=== PATIENT | female | born 1990 | race Two or more races ===

== ENCOUNTER 2019-01-15 10:32 | Emergency (ER) | payer SELFPAY ==
[2019-01-15 10:43] VITALS: BP 112/64
[2019-01-15] MEDS ORDERED: IBUPROFEN 600 MG TAB PO ONE (11:31)
[2019-01-15] MEDS ORDERED: ACETAMINOPHEN 500 MG TAB PO ONE (11:31)
--- NOTE | 2019-01-15 11:31 | EDPHY ---
H & P Time Seen by Provider: 01/15/19 11:13 HPI/ROS: 2 days prior to arrival this patient slipped on a stair that is covered with ice without of her home while wearing slippers and had forced hyperflexion of her left great toe with severe pain the time the injury subsequent ecchymosis swelling and pain without significant improvement from [id number] analgesics. She has been having some difficulty sleeping due to the pain. She denies any other injuries from the fall. She is accompanied by her boyfriend who brought her here by private vehicle for evaluation of her toe injury. ROS: Neuro: No head injury from the fall. No numbness to the toe Musculoskeletal: No other injuries from the incident. Integumentary: No lacerations abrasions 5 point review of symptoms is performed and otherwise negative with exception of pertinent positives and negatives listed in HPI and ROS Smoking Status: Never smoked Physical Exam: Physical Exam Vital signs are normal. General: Pleasant moderately obese female No acute distress HEENT: Atraumatic. Lungs: No respiratory distress, no chest wall tenderness Cardiac: Brisk capillary refill is intact throughout injured toe Musculoskeletal: Patient has circumferential swelling ecchymosis to the proximal phalanx of her left great toe with associated tenderness limited range of motion. Skin: No rash or pallor, no lacerations abrasions Neuro: Alert and oriented x3 with no sensorimotor deficits in the affected extremity Initial differential diagnosis: Toe fracture, traumatic hematoma, contusion Constitutional: Initial Vital Signs Temperature (C) 36.8 C 01/15/19 10:39 Heart Rate 76 01/15/19 10:39 Respiratory Rate 18 01/15/19 10:39 Blood Pressure 112/64 01/15/19 10:39 O2 Sat (%) 93 01/15/19 10:39 O2 Delivery Mode Room Air Allergies/Adverse Reactions: No Known Allergies Allergy (Unverified 01/15/19 10:39) Home Medications: Medication Instructions Recorded traMADol [Ultram 50 mg (*)] 50 - 100 mg PO Q4 PRN #18 tab 01/15/19 MDM/Departure - MDM Diagnostics: Toe x-rays: Spiral fracture of proximal phalanx-nondisplaced of great toe by my interpretation Imaging: I viewed and interpreted images myself Medications Given: Discontinued Medications Acetaminophen (Tylenol) 1,000 mg PO EDNOW ONE Stop: 01/15/19 11:32 Last Admin: 01/15/19 11:43 Dose: 1,000 mg Ibuprofen (Motrin) 600 mg PO EDNOW ONE Stop: 01/15/19 11:32 Last Admin: 01/15/19 11:43 Dose: 600 mg ED Course/Re-evaluation: Splinting: Patient placed in a postop shoe after marya taping the injured toe to the 2nd toe. By our tech with my supervision. I counseled the patient regarding toe fracture. She will follow up with Podiatry. A provided crutches and gave her crutch instructions as well. Answered all her questions prior to discharge home Discussion: Proximal phalanx fracture of great toe neurovascularly intact splinted with close follow-up. No other injuries evident by history or exam on this patient a clear 5 to be sure that she only fell down 1 stair and she confirms this history. She did not fall down a flight of stairs. - Depart Disposition: Home, Routine, Self-Care Clinical Impression: Fractured great toe Qualifiers: Encounter type: initial encounter Fracture type: closed Phalanx: proximal Fracture alignment: nondisplaced Laterality: left Qualified Code(s): S92.415A - Nondisplaced fracture of proximal phalanx of left great toe, initial encounter for closed fracture Condition: Good Instructions: Toe Fracture (ED) Additional Instructions: Diagnosis: Toe fracture Plan: Ibuprofen Tylenol for pain Wear the postop shoe whenever your up and about Consider cane or crutches until pain improves Follow up with the outpatient football scout listed below for further evaluation Limit activity until pain improves Tramadol in addition to ibuprofen Tylenol if needed for pain that prevents sleep. No driving, alcohol work on tramadol. Prescriptions: traMADol [Ultram 50 mg (*)] 50 - 100 mg PO Q4 PRN #18 tab PRN Reason: breakthrough pain Referrals: NONE *PRIMARY CARE P,. [Primary Care Provider] - As per Instructions Reza Marcos MD [Doctor of Podiatric Medicine] - As per Instructions
== END 2019-01-15 11:48 | disposition home or self-care (01) ==
LOC: CED 10:32
DX: S92.415A Nondisplaced fracture of proximal phalanx of left great toe, initial encounter for closed fracture (principal); W00.1XXA Fall from stairs and steps due to ice and snow, initial encounter; Y92.007 Garden or yard of unspecified non-institutional (private) residence as the place of occurrence of the external cause
CPT/HCPCS: 73630-PO; 99283-ER; L4386-ER